=== PATIENT | male | born 1985 | race Caucasian/White ===

== ENCOUNTER 2017-08-14 19:09 | Emergency (ER) | payer OTHER ==
--- NOTE | 2017-08-14 21:11 | ED Physician Documentation ---
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 He opened vehicle but dog (rottweiler) bit patient once, LUE (patient is left hand dominant). This occurred approximately 2:30 PM today. Review of Systems Skin: reports: Bite / sting Musculoskeletal: reports: Extremity pain Neurologic: denies: Focal weakness, Numbness PD PAST MEDICAL HISTORY - Past Medical History Past Medical History: No Neuro: None HEENT: None - Past Surgical History Past Surgical History: No - Present Medications Home Medications: Ambulatory Orders Medication Instructions Recorded Confirmed Amox/Clav 875/125 [Augmentin] 1 each PO Q12H #13 tablet 08/14/17 - Allergies Allergies/Adverse Reactions: Allergies Allergy/AdvReac Type Severity Reaction Status Date / Time No Known Drug Allergies Allergy Verified 08/14/17 19:28 - Social History Does the pt smoke?: No Smoking Status: Never smoker Does the pt drink ETOH?: No Does the pt have substance abuse?: No - Immunizations Immunizations are current?: Yes PD ED PE NORMAL - Vitals Vital signs reviewed: Yes - General General: Alert and oriented X 3, No acute distress, Well developed/nourished - Extremities Extremities: No tenderness to palpate, Normal ROM s pain, No edema - Neuro Neuro: No motor deficit, No sensory deficit PD ED PE EXPANDED - Extremities VÍCTOR UE/Hands Visual: 1 - deformity (two puncture wounds, each are 2-3mm diameter. there are superficial abrasions in midline of anterior proximal FA adjacent to the puncture wounds.) Results - Vitals Vitals: Vital Signs - 24 hr 08/14/17 08/14/17 08/14/17 19:25 20:56 22:11 Temperature 37.2 C Heart Rate 59 L 57 L 54 L Respiratory 16 12 12 Rate Blood Pressure 124/79 125/73 126/74 O2 Saturation 97 100 100 Oxygen O2 Source Room air PD MEDICAL DECISION MAKING - ED course Complexity details: considered differential, d/w patient ED course: Last tetanus booster was approximately 6 years ago. As tonight's injury represents a tetanus-prone wound, will give booster tonight. Small puncture wounds from animal bite, and thus closure not indicated at this time. Will heal by secondary intention, although consideration could be given to delayed closure after a few days on abx. (augmentin given in ED and rx provided). - Sepsis Event Vital Signs: Vital Signs - 24 hr 08/14/17 08/14/17 08/14/17 19:25 20:56 22:11 Temperature 37.2 C Heart Rate 59 L 57 L 54 L Respiratory 16 12 12 Rate Blood Pressure 124/79 125/73 126/74 O2 Saturation 97 100 100 Oxygen O2 Source Room air Departure - Departure Disposition: 01 Home, Self Care Clinical Impression: Dog bite of arm Qualifiers: Encounter type: initial encounter Laterality: left Qualified Code(s): S41.152A - Open bite of left upper arm, initial encounter Condition: Good Instructions: ED Bite Animal General [facility]: [facility] [Provider Group] Prescriptions: Amox/Clav 875/125 [Augmentin] 1 each PO Q12H #13 tablet Comments: Follow up with your primary care provider in 2-3 days for recheck of the wound. Discharge Date/Time: 08/14/17 22:12
[2017-08-14] MEDS ORDERED: TETANUS/DIPHTHERIA/PERTUSSIS 0.5 ML SYRINGE IM ONE (21:25)
[2017-08-14] MEDS ORDERED: AMOX/CLAV 875 MG/125 MG TABLET PO STA (21:25)
[2017-08-14] MEDS ORDERED: BACITRACIN OINT TOP STA (21:25)
[2017-08-14 22:12] VITALS: BP 126/74
== END 2017-08-14 22:12 | disposition home or self-care (01) ==
LOC: ED 19:09
DX: S41.152A Open bite of left upper arm, initial encounter (principal); W54.0XXA Bitten by dog, initial encounter; Y93.89 Activity, other specified; Y99.0 Civilian activity done for income or pay
CPT/HCPCS: 90471; 90715; 99283; A9270; 1040M

== ENCOUNTER 2018-10-28 22:47 | Emergency (ER) | payer OTHER ==
--- NOTE | 2018-10-28 23:38 | ED Physician Documentation ---
History of Present Illness - Stated complaint Stated Complaint: FAST HEART - Chief complaint Chief Complaint: Cardiac - History obtained from History obtained from: Patient - History of Present Illness Timing: Enter time (22:15), Today Pain level max: 0 Pain level now: 0 Improved by: nothing Worsened by: no exacerbating factors - Additonal information Additional information: while at home at rest tonight, patient had sudden onset rapid palpitations which has been intermittent/episodic since 10:15 PM tonight. Denies h/o same. Took two excedrin earlier tonight for generalized LEMUS which has since resolved. He has not had palpitations while in ED. Review of Systems Cardiac: reports: Palpitations. denies: Chest pain / pressure, Pedal edema, Calf pain Respiratory: denies: Dyspnea, Cough GI: reports: Reviewed and negative Musculoskeletal: denies: Extremity swelling PD PAST MEDICAL HISTORY - Past Medical History Neuro: None HEENT: None - Past Surgical History Past Surgical History: No - Present Medications Home Medications: Ambulatory Orders Medication Instructions Recorded Confirmed Amox/Clav 875/125 [Augmentin] 1 each PO Q12H #13 tablet 08/14/17 - Allergies Allergies/Adverse Reactions: Allergies Allergy/AdvReac Type Severity Reaction Status Date / Time No Known Drug Allergies Allergy Verified 08/14/17 19:28 - Social History Does the pt smoke?: No Smoking Status: Never smoker Does the pt drink ETOH?: No Does the pt have substance abuse?: No - Immunizations Immunizations are current?: Yes PD ED PE NORMAL - Vitals Vital signs reviewed: Yes - General General: Alert and oriented X 3, No acute distress, Well developed/nourished - Cardiac Cardiac: RRR, No murmur, No gallop, No rub - Respiratory Respiratory: No respiratory distress, Clear bilaterally - Extremities Extremities: No edema Results - Vitals Vitals: Vital Signs - 24 hr 10/28/18 10/28/18 10/29/18 22:51 22:56 00:12 Temperature 36.9 C Heart Rate 80 57 L Respiratory 22 17 Rate Blood Pressure 149/86 H 125/79 O2 Saturation 100 98 Oxygen O2 Source Room air - EKG (time done) No standard instances Rate: Rate (enter#) (77) Rhythm: NSR [place]: Normal Intervals: Normal [place] QRS: Normal Ischemia: ST elevation c/w repol - Labs Labs: Laboratory Tests 10/29/18 10/29/18 10/29/18 00:10 00:10 00:10 WBC 6.1 RBC 4.57 L Hgb 13.6 L Hct 41.6 L MCV 91.0 MCH 29.8 MCHC 32.7 RDW 12.5 Plt Count 177 MPV 10.7 Neut # (Auto) 2.7 Lymph # (Auto) 2.6 [place] # (Auto) 0.7 Eos # (Auto) 0.1 Baso # (Auto) 0.0 Absolute Nucleated RBC 0.00 Nucleated RBC % 0.0 Sodium 138 Potassium 3.5 Chloride 103 Carbon Dioxide 26 Anion Gap 9.0 BUN 20 Creatinine 0.9 Estimated GFR (MDRD) 97 Glucose 96 Calcium 9.2 TSH 5.10 PD MEDICAL DECISION MAKING - ED course Complexity details: reviewed results, re-evaluated patient, considered differential, d/w patient Departure - Departure Disposition: Home, Self Care Clinical Impression: Palpitations Condition: Good Instructions: ED Palpitations Discharge Date/Time: 10/29/18 01:11
[2018-10-29 00:13] VITALS: BP 125/79
[2018-10-29 00:15] LABS: BASOPHILS % (AUTO) 0.5 %; EOSINOPHILS # (AUTO) 0.1 10^3/uL (0.0-0.7); EOSINOPHILS % (AUTO) 1.3 %; HGB - HEMOGLOBIN 13.6 g/dL (14.0-18.0); LYMPHOCYTES # (AUTO) 2.6 10^3/uL (1.5-3.5); LYMPHOCYTES % (AUTO) 42.6 %; MEAN CORPUSCULAR HEMOGLOBIN 29.8 pg (27.0-31.0); MEAN CORPUSCULAR HGB CONC 32.7 g/dL (32.0-36.0); MEAN PLATELET VOLUME 10.7 fL (7.4-11.4); MONOCYTES # (AUTO) 0.7 10^3/uL (0.0-1.0); MONOCYTES % (AUTO) 11.8 %; NEUTROPHILS # (AUTO) 2.7 10^3/uL (1.5-6.6); NEUTROPHILS % (AUTO) 43.6 %; PLT - PLATELET COUNT 177 10^3/uL (130-450); RED BLOOD COUNT 4.57 10^6/uL (4.70-6.10); RED CELL DISTRIBUTION WIDTH 12.5 % (12.0-15.0); WHITE BLOOD COUNT 6.1 x10^3/uL (4.8-10.8)
[2018-10-29 00:25] LABS: CALCIUM 9.2 mg/dL (8.5-10.3); CREATININE 0.9 mg/dL (0.6-1.2)
== END 2018-10-29 01:11 | disposition home or self-care (01) ==
LOC: ED 22:47
DX: R00.2 Palpitations (principal)
CPT/HCPCS: 36415; 80048; 84443; 85025; 93005; 99283; 99284

== ENCOUNTER 2018-10-31 16:05 | Emergency (ER) | payer OTHER ==
--- NOTE | 2018-10-31 16:21 | ED Physician Documentation ---
History of Present Illness - Stated complaint Stated Complaint: RAPID HEARTBEAT - History obtained from History obtained from: Patient - History of Present Illness Timing: Today (Healthy 33-year-old gentleman was seen her on Sunday for palpita tions. His EKG was normal. It recurred today while at work. He felt a rapid heartbeat for several minutes. It is gone again now. There is no associated shortness of breath. No chest pain. No pedal edema or calf pain.) - Treatment prior to arrival Treatment prior to arrival: On Sunday he had taken Excedrin prior to that starting, he did not take any t keara. No excessive caffeine or stimulant use. Review of Systems Constitutional: denies: Fever, Chills, Fatigue Throat: denies: Sore throat Cardiac: denies: Chest pain / pressure, Pedal edema, Calf pain Respiratory: denies: Dyspnea, Cough PD PAST MEDICAL HISTORY - Past Medical History Neuro: None HEENT: None - Past Surgical History Past Surgical History: No - Present Medications Home Medications: Ambulatory Orders Medication Instructions Recorded Confirmed Amox/Clav 875/125 [Augmentin] 1 each PO Q12H #13 tablet 08/14/17 - Allergies Allergies/Adverse Reactions: Allergies Allergy/AdvReac Type Severity Reaction Status Date / Time No Known Drug Allergies Allergy Verified 10/31/18 16:16 - Social History Does the pt smoke?: No Smoking Status: Never smoker Does the pt drink ETOH?: No Does the pt have substance abuse?: No - Immunizations Immunizations are current?: Yes PD ED PE NORMAL - Vitals Vital signs reviewed: Yes - General General: Alert and oriented X 3, No acute distress - HEENT HEENT: PERRL, EOMI - Neck Neck: Supple, no meningeal sign, No bony TTP - Cardiac Cardiac: RRR, No murmur - Respiratory Respiratory: No respiratory distress, Clear bilaterally - Abdomen Abdomen: Non tender - Extremities Extremities: No edema, No calf tenderness / cord - Neuro Neuro: Alert and oriented X 3, Normal speech Results - Vitals Vitals: Vital Signs - 24 hr 10/31/18 16:16 Temperature 36.7 C Heart Rate 54 L Respiratory 15 Rate Blood Pressure 132/81 H O2 Saturation 100 Oxygen O2 Source Room air - EKG (time done) 1619 Rate: Rate (enter#) (49) Rhythm: Sinus bradycardia [place]: Normal Intervals: Normal [place] QRS: Normal Ischemia: Normal ST segments, ST elevation c/w repol Computer interpretation: Agree with computer PD MEDICAL DECISION MAKING - ED course Complexity details: reviewed old records (from prior visit, nl EKG/labs) ED course: 33-year-old gentleman with recurrent palpitations, no arrhythmias on the monitor here. He was observed for a while without arrhythmias. Encouraged to follow- up with his doctor for consideration for Holter monitor. Departure - Departure Disposition: 01 Home, Self Care Clinical Impression: Palpitations Condition: Good Record reviewed to determine appropriate education?: Yes Instructions: ED Palpitations Comments: If it recurs and lasts come back and we can try to catch it on the monitor. Otherwise follow-up with your doctor as scheduled, consider Holter monitoring.
[2018-10-31 17:46] VITALS: BP 122/74
== END 2018-10-31 17:53 | disposition home or self-care (01) ==
LOC: ED 16:05
DX: R00.2 Palpitations (principal); R00.1 Bradycardia, unspecified
CPT/HCPCS: 93005; 99283

== ENCOUNTER 2019-05-26 16:15 | Outpatient (CLI) | payer OTHER | END 2019-05-26 16:16 | disposition home or self-care (01) | LOC: COV 16:15 | PROVIDERS: ATTEND Family Medicine | DX: R50.9 Fever, unspecified (principal) | CPT/HCPCS: 81599 ==